=== PATIENT | female | born 1975 | race Caucasian/White ===

== ENCOUNTER 2019-11-13 10:31 | Emergency (ER) | payer OTHER ==
[2019-11-13] MEDS ORDERED: Norco 10/325 MG Tablet PO ONE (10:57)
[2019-11-13] MEDS ORDERED: Norco 10/325 MG Tablet ONE (11:13)
--- NOTE | 2019-11-13 11:24 | XRAY ---
Indication: Pain following tripping injury. Comparison: None 3 nonweightbearing views right foot demonstrates nondisplaced proximal 2nd/3rd metatarsal fractures with soft tissue swelling. No other bony, articular, or soft tissue abnormalities.
--- NOTE | 2019-11-13 11:42 | ERPHSYRPT ---
- History of Present Illness Time Seen by Provider: 11/13/19 10:37 Source: patient Exam Limitations: no limitations Patient Subjective Stated Complaint: pt reports tripping in a hole outside last evening causing an injury to her right foot. pain increased with weight bearing. pt denies any other injury or accident. Triage Nursing Assessment: pt is aox3, pupils perrl, afebrile, resps easy and non labored, cap refill < 3 seconds, radial pulses strong and equal, pt skin pink warm dry. slight swelling noted to the right dorsal foot. skin is intact. no obvious deformity noted. Physician History: 44 years old female with history of stroke with left-sided weakness presented in the ER with chief complaint of right foot pain and swelling after she accidentally stepped in a hole in the yard last night and bent her foot. Since then she is having moderate intensity sharp shooting pain which is aggravated with weightbearing and movements of the foot. Denies any numbness or tingling of toes. No ankle pain. No injury anywhere else. Allergies/Adverse Reactions: No Known Drug Allergies Allergy (Unverified 11/13/19 11:07) Home Medications: Apixaban [Eliquis] 5 mg PO BID 11/13/19 [History] Duloxetine HCl 30 mg [Cymbalta 30 MG Capsule] 30 mg PO DAILY 11/13/19 [History] Furosemide 40 mg [Lasix 40 MG] 40 mg PO BID 11/13/19 [History] Gabapentin 300 mg PO BID 11/13/19 [History] Levetiracetam 500 mg PO BID 11/13/19 [History] Metoprolol Tartrate 25 mg [Lopressor 25MG Tab] 25 mg PO BID 11/13/19 [History] Hx Tetanus, Diphtheria Vaccination/Date Given: Yes Hx Influenza Vaccination/Date Given: No Hx Pneumococcal Vaccination/Date Given: No Immunizations Up to Date: Yes Travel Risk - International Travel Have you traveled outside of the country in past 3 weeks: No - Coronavirus Screening Are you exhibiting any of the following symptoms?: No Close contact with a COVID-19 positive Pt in past 14-21 Days: No - Review of Systems Constitutional: No Symptoms Eyes: No Symptoms Ears, Nose, & Throat: No Symptoms Respiratory: No Symptoms Cardiac: No Symptoms Abdominal/Gastrointestinal: No Symptoms Musculoskeletal: Fall, Injury Skin: No Symptoms Neurological: Focal Weakness Psychological: Anxiety Endocrine: No Symptoms Hematologic/Lymphatic: No Symptoms Immunological/Allergic: No Symptoms - Past Medical History Pertinent Past Medical History: Yes Neurological History: Stroke Cardiac History: Congenital Heart Disease, Other Musculoskeletal History: Other GI Medical History: GERD, Gallbladder Disease Psycho-Social History: Depression Other Medical History: 2018 -cardiac embolism causing stroke, with residual left side weakness, loss of left peripheral vision, no use of left upper extremity. 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 scoliosis - Past Surgical History Past Surgical History: Yes Cardiac: Pacemaker, Other Gastrointestinal: Cholecystectomy Other Surgical History: 2018 MAZE procedure. rods in back r/t scoliosis - Social History Smoking Status: Current every day smoker Drug Use: none Patient Lives Alone: No - Female History Hx Last Menstrual Period: 11/04/19 Hx Now: (unkn) - Nursing Vital Signs Nursing Vital Signs: Initial Vital Signs Temperature 99 F 11/13/19 10:44 Pulse Rate 81 11/13/19 10:44 Respiratory Rate 20 11/13/19 10:44 Blood Pressure 108/71 11/13/19 10:44 O2 Sat by Pulse Oximetry 94 L 11/13/19 10:44 Pain Scale Pain Intensity 4 - Physical Exam General Appearance: no apparent distress Eyes, Ears, Nose, Throat Exam: normal ENT inspection Neck Exam: normal inspection, supple, full range of motion Cardiovascular/Respiratory Exam: normal breath sounds, regular rate/rhythm Gastrointestinal/Abdominal Exam: non-tender, soft Ankle Exam: bilateral ankle: non-tender, normal inspection, normal range of motion, no evidence of injury Foot Exam: right foot: bone tenderness (Distal to mid foot dorsum. No crepitus), pain, soft tissue tenderness, swelling, left foot: non-tender, normal inspection, no evidence of injury Neuro/Tendon Exam: normal sensation, normal motor functions, normal tendon functions Mental Status Exam: alert, oriented x 3, cooperative Skin Exam: normal color SpO2: 94 O2 Delivery: Room Air - Course Nursing assessment & vital signs reviewed: Yes Ordered Tests: Active Orders 24 hr Category Date Time Status FOOT (MINIMUM 3 VIEWS) Stat Exams 11/13/19 11:15 Completed Medication Summary Discontinued Medications Generic Name Dose Route Start Last Admin Trade Name Freq PRN Reason Stop Dose Admin Hydrocodone Bitart/Acetaminophen 1 tab 07/09/20 10:57 11/13/19 11:13 [place] 10/325 Mg Tablet PO 11/13/19 10:58 1 tab STAT ONE Administration Hydrocodone Bitart/Acetaminophen Confirm 11/13/19 11:13 [place] 10/325 Mg Tablet Administered 11/13/19 11:14 Dose 1 tab .ROUTE .STK-MED ONE - Progress Progress: improved, pain not gone completely Progress Note: 11/13/19 11:40 She is given [place] for pain. X-rays showed second and third proximal metatarsal fracture but no articular abnormality. Placed in a walking long boot and outpatient Ortho follow-up. Counseled pt/family regarding: diagnosis, need for follow-up, rad results - Departure Departure Disposition: Home Clinical Impression: Foot fracture, right Qualifiers: Encounter type: initial encounter Fracture type: closed Qualified Code(s): S92.901A - Unspecified fracture of right foot, initial encounter for closed fracture Condition: Stable Critical Care Time: No Referrals: DOCTOR,NO FAMILY [Primary Care Provider] - CRISTO TAYLOR NP [NON-STAFF PHY W/O PRIVILEGES] - (Tomorrow for reevaluation) Instructions: Contusion (DC), Foot Fracture (DC) Additional Instructions: Nonweightbearing. Use crutches for ambulation. Follow-up with orthopedic clinic for reevaluation tomorrow. Take pain medications as needed. Prescriptions: Hydrocodone/Acetaminophen [[place] 7.5-325 Tablet] 1 each PO Q4-6HPRN PRN 3 Days #12 tablet MDD 4 PRN Reason: Pain
[2019-11-13 12:18] VITALS: BP 100/61; PULSE 68; O2SAT 96
== END 2019-11-13 12:17 | disposition home or self-care (01) ==
LOC: ED 10:31
DX: S92.901A Unspecified fracture of right foot, initial encounter for closed fracture (principal); W01.0XXA Fall on same level from slipping, tripping and stumbling without subsequent striking against object, initial encounter; Y93.01 Activity, walking, marching and hiking; Y92.89 Other specified places as the place of occurrence of the external cause
CPT/HCPCS: 73630; 99283; L4386; A9270-GY